=== PATIENT | female | born 1975 ===

== ENCOUNTER 2017-09-13 20:29 | Observation (INO) | payer OTHER, MEDICAID, SELFPAY | END 2017-09-14 18:10 | disposition home or self-care (01) | LOC: AC 09-21 10:34 | PROVIDERS: Admitting Provider Internal Medicine; Visit Provider Internal Medicine | DX: E10.10 Type 1 diabetes mellitus with ketoacidosis without coma (principal); B37.3 Candidiasis of vulva and vagina; Z79.4 Long term (current) use of insulin; Z91.14 Patient's other noncompliance with medication regimen; F17.200 Nicotine dependence, unspecified, uncomplicated; Z91.120 Patient's intentional underdosing of medication regimen due to financial hardship | CPT/HCPCS: 36415; 74021; 74022; 80048; 80053; 81001; 82009; 82150; 82962; 83036; 83690; 83735; 83986; 84100; 85025; 87040; 87086; 87797; 96361; 96374; 99058; 99284; 99406; G0378; J2405; J3480 ==